=== PATIENT | male | born 1950 | race Hispanic/Latino ===

== ENCOUNTER 2024-04-28 21:07 | Inpatient (IN) | payer OTHER ==
[2024-04-29] MEDS ORDERED: Ondansetron PF 4 MG/2 ML Vial IVP PRN (01:06)
[2024-04-29] MEDS ORDERED: Acetaminophen 325 MG TAB PO PRN (01:06)
[2024-04-29] MEDS ORDERED: Glucagon 1 MG/ML KIT IM PRN (02:08)
[2024-04-29] MEDS ORDERED: Dextrose 5% in Water 1,000 ML IV PRN (02:08)
[2024-04-29] MEDS ORDERED: Insulin Lispro 100 UNIT/ML 10 ML VIAL SC PRN (02:08)
[2024-04-29 03:59] LABS: #Basophils 0.04 10x3/uL (0.0-0.2); %Basophils 0.5 % (0.0-1.0); %Lymphocytes 21.6 % (21.0-51.0); %Monocytes 11.2 % (0.0-10.0); %Neutrophils 64.3 % (42.0-75.0); Hematocrit 36.6 % (42.0-52.0); Hemoglobin 11.4 g/dL (14.0-18.0); Mean Corpuscular HGB CONC 31.1 g/dL (32.0-36.0); Mean Corpuscular Hemoglobin 25.6 pg (27.0-31.0); Mean Corpuscular Volume 82.2 fL (78.0-98.0); Mean Platelet Volume 11.8 fL (7.4-10.4); Platelet Count 154 10x3/uL (130-400); RBC Distribution Width 20.1 % (11.5-14.5); Red Blood Cell (RBC) Count 4.45 mill/uL (4.70-6.10)
[2024-04-29 04:18] LABS: Anion Gap 15 mmol/L (10-20); BUN (Urea Nitrogen) 18 mg/dL (8.4-25.7); Calc. Creatinine Clearance 57 mL/min (70-130); Calcium 9.1 mg/dL (7.8-10.44); Carbon Dioxide 24 mmol/L (23-31); Chloride 107 mmol/L (98-107); Estimated GFR 48; Glucose 46 mg/dL (83-110); Magnesium 1.7 mg/dL (1.6-2.6); Potassium 3.8 mmol/L (3.5-5.1); Sodium 142 mmol/L (136-145)
[2024-04-29] MEDS: Dextrose 50% Abboject 50 ML SYRINGE SLOW IVP PRN (04:26)
[2024-04-29] MEDS: Furosemide 20 MG (2 mL) VIAL SLOW IVP SCH ×2 (06:27→15:29)
[2024-04-29] MEDS: Insulin Regular, Human 100 UNIT/ML 10 ML VIAL SC SCH (08:50)
[2024-04-29] MEDS: Aspirin 81 mg Enteric Coated Tablet PO SCH (08:51)
[2024-04-29] MEDS: Enoxaparin 40 MG (0.4 mL) SYRINGE SC SCH (08:51)
[2024-04-29] MEDS: Carvedilol 3.125 MG TAB PO SCH (08:51)
[2024-04-29] MEDS: Insulin NPH Human Isophane 100 UNITS/ML (10 ML VIAL) SC SCH (09:41)
[2024-04-29] MEDS: Albumin 25% 25 GM (100 mL) BOT IVPB SCH (13:02)
[2024-04-29] MEDS: Ipratropium/Albuterol 3 ML NEB NEB SCH ×2 (13:39→13:42)
[2024-04-29] MEDS: Insulin Lispro 100 UNIT/ML 10 ML VIAL SC PRN (18:17)
[2024-04-29] MEDS: Atorvastatin Calcium 40 MG TAB PO SCH (20:26)
[2024-04-30 08:35] LABS: Anion Gap 19 mmol/L (10-20); BUN (Urea Nitrogen) 24 mg/dL (8.4-25.7); Calc. Creatinine Clearance 41 mL/min (70-130); Carbon Dioxide 28 mmol/L (23-31); Chloride 100 mmol/L (98-107); Estimated GFR 35; Glucose 87 mg/dL (83-110); Magnesium 1.7 mg/dL (1.6-2.6); Potassium 3.5 mmol/L (3.5-5.1); Sodium 143 mmol/L (136-145)
[2024-04-30 08:38] LABS: #Basophils 0.04 10x3/uL (0.0-0.2); %Basophils 0.6 % (0.0-1.0); %Eosinophils 2.9 % (0.0-10.0); %Lymphocytes 19.5 % (21.0-51.0); %Monocytes 13.1 % (0.0-10.0); Hematocrit 34.9 % (42.0-52.0); Hemoglobin 10.9 g/dL (14.0-18.0); Mean Corpuscular HGB CONC 31.6 g/dL (32.0-36.0); Mean Corpuscular Hemoglobin 25.8 pg (27.0-31.0); Mean Corpuscular Volume 81.7 fL (78.0-98.0); Mean Platelet Volume 11.5 fL (7.4-10.4); Platelet Count 141 10x3/uL (130-400); RBC Distribution Width 19.8 % (11.5-14.5); Red Blood Cell (RBC) Count 4.26 mill/uL (4.70-6.10)
[2024-04-30] MEDS ORDERED: Furosemide 40 MG TAB PO PRN (10:44)
[2024-05-01 05:17] LABS: #Basophils 0.03 10x3/uL (0.0-0.2); %Basophils 0.4 % (0.0-1.0); %Eosinophils 3.4 % (0.0-10.0); %Lymphocytes 22.8 % (21.0-51.0); %Monocytes 12.8 % (0.0-10.0); %Neutrophils 60.3 % (42.0-75.0); Hematocrit 38.1 % (42.0-52.0); Mean Corpuscular HGB CONC 31.5 g/dL (32.0-36.0); Mean Corpuscular Hemoglobin 25.5 pg (27.0-31.0); Mean Corpuscular Volume 81.1 fL (78.0-98.0); Mean Platelet Volume 12.1 fL (7.4-10.4); Platelet Count 155 10x3/uL (130-400); RBC Distribution Width 19.8 % (11.5-14.5)
[2024-05-01 05:44] LABS: Anion Gap 20 mmol/L (10-20); BUN (Urea Nitrogen) 26 mg/dL (8.4-25.7); Calc. Creatinine Clearance 47 mL/min (70-130); Calcium 9.5 mg/dL (7.8-10.44); Carbon Dioxide 25 mmol/L (23-31); Chloride 102 mmol/L (98-107); Estimated GFR 40; Glucose 103 mg/dL (83-110); Magnesium 1.9 mg/dL (1.6-2.6); Potassium 3.6 mmol/L (3.5-5.1); Sodium 143 mmol/L (136-145)
[2024-05-01] MEDS: Ferrous Sulfate 325 MG TAB PO SCH (08:37)
[2024-05-01] MEDS: Empagliflozin 10 MG TAB PO SCH (08:37)
[2024-05-01] MEDS: Carvedilol 3.125 MG TAB PO SCH (17:17)
[2024-05-02 05:46] LABS: Anion Gap 14 mmol/L (10-20); BUN (Urea Nitrogen) 29 mg/dL (8.4-25.7); Calc. Creatinine Clearance 47 mL/min (70-130); Calcium 9.7 mg/dL (7.8-10.44); Carbon Dioxide 27 mmol/L (23-31); Chloride 104 mmol/L (98-107); Estimated GFR 40; Glucose 107 mg/dL (83-110); Potassium 3.6 mmol/L (3.5-5.1); Sodium 141 mmol/L (136-145)
[2024-05-02 08:06] VITALS: TEMP 98
[2024-05-02] MEDS: FLU (Fluad Triv) TS24-25 (65UP)/MF59C/PF 45 MCG/0.5 ML Syringe IM ONE (08:43)
[2024-05-02 09:22] VITALS: BP 98/59
[2024-05-27] MEDS ORDERED: Cyanocobalamin 1000 MCG/ML VIAL IM SCH (09:00)
== END 2024-05-02 12:34 | DRG 291 ==
LOC: PCU 22:49
PROVIDERS: ADMIT Internal Medicine; ATTEND Family Medicine
PROC: 30233J1 Transfusion of Nonautologous Serum Albumin into Peripheral Vein, Percutaneous Approach (ICD-10-PCS; principal; 2024-04-28)
DX: I13.0 Hypertensive heart and chronic kidney disease with heart failure and stage 1 through stage 4 chronic kidney disease, or unspecified chronic kidney disease (principal); I50.23 Acute on chronic systolic (congestive) heart failure; I24.89 Other forms of acute ischemic heart disease; N17.9 Acute kidney failure, unspecified; N18.30 Chronic kidney disease, stage 3 unspecified; E66.9 Obesity, unspecified; I25.5 Ischemic cardiomyopathy; E11.22 Type 2 diabetes mellitus with diabetic chronic kidney disease; D63.1 Anemia in chronic kidney disease; F03.90 Unspecified dementia, unspecified severity, without behavioral disturbance, psychotic disturbance, mood disturbance, and anxiety; Z65.2 Problems related to release from prison; Z79.899 Other long term (current) drug therapy; Z68.32 Body mass index [BMI] 32.0-32.9, adult
CPT/HCPCS: 36415; 36416; 71045; 71275; 80048; 80053; 83605; 83735; 83880; 84484; 85025; 85379; 87040; 87428; 93005; 94640; 96374; J1650; J1815; J1940; J7620; J7999; P9047

== ENCOUNTER 2024-05-02 15:26 | Inpatient (IN) | payer OTHER ==
[~2024-05-02 15:26] MED LIST: Iopamidol-370 76% 500 ML MDV (1 ML CHARGE) ONE
[2024-05-02] MEDS ORDERED: Magnesium 2 GM/50 ML BAG (IN WATER) ONE (15:30)
[2024-05-02] MEDS ORDERED: Sodium Bicarb 50 MEQ/50 ML Abboject 8.4% SYRINGE ONE (15:30)
[2024-05-02] MEDS ORDERED: Amiodarone 150 MG/3 ML VIAL ONE (15:30)
[2024-05-02] MEDS ORDERED: Amiodarone 450 MG, Admixture Fee 1 EACH in Dextrose 5% in Water 250 ML IVPB SCH (15:45)
[2024-05-02] MEDS ORDERED: fentaNYL 50 mcg/mL 1 mL Vial ONE (15:55)
[2024-05-02 17:02] LABS: #Basophils Less than 0.03 10x3/uL (0.0-0.2); %Basophils 0.2 % (0.0-1.0); %Eosinophils 1.4 % (0.0-10.0); %Lymphocytes 9.4 % (21.0-51.0); %Monocytes 6.3 % (0.0-10.0); %Neutrophils 82.1 % (42.0-75.0); Hemoglobin 12.3 g/dL (14.0-18.0); Mean Corpuscular HGB CONC 30.8 g/dL (32.0-36.0); Mean Corpuscular Hemoglobin 25.4 pg (27.0-31.0); Mean Corpuscular Volume 82.6 fL (78.0-98.0); Mean Platelet Volume 11.8 fL (7.4-10.4); Platelet Count 152 10x3/uL (130-400); RBC Distribution Width 19.2 % (11.5-14.5); Red Blood Cell (RBC) Count 4.84 mill/uL (4.70-6.10)
[2024-05-02 17:11] LABS: INR-International Normal Ratio 1.2; Prothrombin Time 15.4 sec (12.0-14.7)
[2024-05-02 17:12] LABS: PTT 36.8 sec (22.9-36.1)
[2024-05-02 17:27] LABS: ALT (SGPT) 21 U/L (8-55); AST (SGOT) 33 U/L (5-34); Albumin 4.3 g/dL (3.4-4.8); Alkaline Phosphatase 104 U/L (40-110); Anion Gap 17 mmol/L (10-20); BUN (Urea Nitrogen) 28 mg/dL (8.4-25.7); Bilirubin, Total 0.9 mg/dL (0.2-1.2); Calc. Creatinine Clearance 0 mL/min (70-130); Calcium 9.2 mg/dL (7.8-10.44); Carbon Dioxide 25 mmol/L (23-31); Chloride 103 mmol/L (98-107); Estimated GFR 37; Globulin 3.3 g/dL (2.4-3.5); Glucose 179 mg/dL (83-110); Potassium 4.2 mmol/L (3.5-5.1); Protein, Total 7.6 g/dL (5.8-8.1); Sodium 141 mmol/L (136-145)
[2024-05-02 17:35] LABS: Troponin I 0.243 ng/mL (< 0.028)
[2024-05-02] MEDS ORDERED: Aspirin Chewable 81 MG TAB ONE (18:29)
[2024-05-02] MEDS ORDERED: Insulin Lispro 100 UNIT/ML 10 ML VIAL SC PRN (19:55)
[2024-05-02] MEDS ORDERED: Dextrose 5% in Water 1,000 ML IV PRN (19:55)
[2024-05-02] MEDS ORDERED: Dextrose 50% Abboject 50 ML SYRINGE SLOW IVP PRN (19:55)
[2024-05-02] MEDS ORDERED: Glucagon 1 MG/ML KIT IM PRN (19:55)
[2024-05-02] MEDS ORDERED: Electrolyte Replacement Protocol FS PRN (20:15)
[2024-05-02] MEDS: Heparin 5,000 UNITS/ML VIAL SC SCH (20:47)
[2024-05-02] MEDS: Famotidine/PF 20 mg/2ml Vial SLOW IVP SCH (20:47)
[2024-05-02 20:59] LABS: Magnesium 2.8 mg/dL (1.6-2.6)
[2024-05-02] MEDS: Electrolyte Replacement Protocol 1 EACH FS ONE (23:08)
[2024-05-02 23:35] LABS: Amphetamine Not Detected (NotDetected); Barbiturates Screen Not Detected (NotDetected); Benzodiazepine Screen Not Detected (NotDetected); Cocaine Metabolite Screen Not Detected (NotDetected); Methadone Not Detected (NotDetected); Methamphetamine Not Detected (NotDetected); Opiate Screen Not Detected (NotDetected); Oxycodone Screen Not Detected (NotDetected); Phencyclidine (PCP) Not Detected (NotDetected); THC/Cannabinoid Screen Not Detected (NotDetected); Tricyclic Screen Not Detected (NotDetected)
[2024-05-02] MEDS: Amiodarone 450 MG in Dextrose 5% in Water 250 ML IVPB SCH (23:56)
[2024-05-02 23:59] LABS: Troponin I 1.283 ng/mL (< 0.028)
[2024-05-03 03:35] LABS: #Basophils 0.04 10x3/uL (0.0-0.2); %Basophils 0.5 % (0.0-1.0); %Eosinophils 2.8 % (0.0-10.0); %Lymphocytes 20.7 % (21.0-51.0); %Monocytes 11.6 % (0.0-10.0); %Neutrophils 64.2 % (42.0-75.0); Hematocrit 38.1 % (42.0-52.0); Hemoglobin 11.7 g/dL (14.0-18.0); Mean Corpuscular HGB CONC 30.7 g/dL (32.0-36.0); Mean Corpuscular Hemoglobin 25.2 pg (27.0-31.0); Mean Corpuscular Volume 82.1 fL (78.0-98.0); Mean Platelet Volume 11.2 fL (7.4-10.4); Platelet Count 147 10x3/uL (130-400); Red Blood Cell (RBC) Count 4.64 mill/uL (4.70-6.10)
[2024-05-03 03:53] LABS: Anion Gap 16 mmol/L (10-20); BUN (Urea Nitrogen) 27 mg/dL (8.4-25.7); CK (CPK) 334 U/L (30-200); Calc. Creatinine Clearance 48 mL/min (70-130); Calcium 9.2 mg/dL (7.8-10.44); Carbon Dioxide 23 mmol/L (23-31); Cardiac Risk 3.7 (Less than 4.5); Chloride 105 mmol/L (98-107); Cholesterol 107 mg/dl (< 200 Desired); Estimated GFR 41; Glucose 125 mg/dL (83-110); HDL Cholesterol 29 mg/dL (>60 Neg Risk); LDL Cholesterol, Calculated 59 mg/dL; Sodium 140 mmol/L (136-145); Triglycerides 95 mg/dL (Less than 150)
[2024-05-03] MEDS ORDERED: Enoxaparin 40 MG (0.4 mL) SYRINGE SC SCH (09:00)
[2024-05-03] MEDS ORDERED: Furosemide 40 MG (4 mL) VIAL SLOW IVP SCH ×2 (09:30→15:30)
[2024-05-03 09:59] LABS: Hematocrit 38.1 % (42.0-52.0); Hemoglobin 11.6 g/dL (14.0-18.0); Platelet Count 158 10x3/uL (130-400)
[2024-05-03 10:19] VITALS: BMI 33.4
[2024-05-03] MEDS: Heparin 10,000 UNITS/ 10 ML VIAL SLOW IVP SCH (10:36)
[2024-05-03] MEDS: Heparin 25,000 units/D5W 500 ML IVPB SCH (10:38)
[2024-05-03] MEDS: Nitroglycerin 0.4 MG TAB (25 Tab Bottle) SL PRN (12:54)
[2024-05-03] MEDS: Furosemide 20 MG TAB PO SCH (14:38)
[2024-05-03] MEDS: Isosorbide Mononitrate 30 MG ER.TAB PO SCH (14:40)
[2024-05-03] MEDS: Amiodarone 200 MG TAB PO SCH ×2 (14:41→20:41)
[2024-05-03] MEDS: Aspirin 81 mg Enteric Coated Tablet PO SCH (14:41)
[2024-05-03] MEDS: Carvedilol 3.125 MG TAB PO SCH (17:51)
[2024-05-03 18:04] LABS: PTT 214.3 sec (22.9-36.1)
[2024-05-03] MEDS: Atorvastatin Calcium 40 MG TAB PO SCH (20:41)
[2024-05-04 03:36] LABS: #Basophils Less than 0.03 10x3/uL (0.0-0.2); %Basophils 0.2 % (0.0-1.0); %Eosinophils 4.8 % (0.0-10.0); %Lymphocytes 18.8 % (21.0-51.0); %Monocytes 9.1 % (0.0-10.0); %Neutrophils 66.7 % (42.0-75.0); Hematocrit 36.8 % (42.0-52.0); Hemoglobin 11.6 g/dL (14.0-18.0); Mean Corpuscular HGB CONC 31.5 g/dL (32.0-36.0); Mean Corpuscular Hemoglobin 25.8 pg (27.0-31.0); Mean Platelet Volume 11.9 fL (7.4-10.4); Platelet Count 147 10x3/uL (130-400); RBC Distribution Width 18.9 % (11.5-14.5); Red Blood Cell (RBC) Count 4.49 mill/uL (4.70-6.10)
[2024-05-04 03:51] LABS: Anion Gap 15 mmol/L (10-20); BUN (Urea Nitrogen) 30 mg/dL (8.4-25.7); Calc. Creatinine Clearance 42 mL/min (70-130); Calcium 9.2 mg/dL (7.8-10.44); Carbon Dioxide 24 mmol/L (23-31); Chloride 103 mmol/L (98-107); Estimated GFR 33; Glucose 134 mg/dL (83-110); Sodium 138 mmol/L (136-145)
[2024-05-04 05:26] VITALS: BMI 30.9
[2024-05-04] MEDS: Aspirin 81 mg Enteric Coated Tablet PO SCH (08:56)
[2024-05-04] MEDS: Furosemide 40 MG TAB PO SCH (08:56)
[2024-05-04] MEDS: Isosorbide Mononitrate 30 MG ER.TAB PO SCH (08:57)
[2024-05-04] MEDS ORDERED: Polyethylene Glycol 3350 17 GM Packet PO PRN (18:46)
[2024-05-04] MEDS: Polyethylene Glycol 3350 17 GM Packet PO SCH (21:54)
[2024-05-05 03:22] LABS: #Basophils 0.05 10x3/uL (0.0-0.2); %Basophils 0.7 % (0.0-1.0); %Eosinophils 5.3 % (0.0-10.0); %Lymphocytes 25.7 % (21.0-51.0); %Monocytes 12.6 % (0.0-10.0); %Neutrophils 55.3 % (42.0-75.0); Hematocrit 37.1 % (42.0-52.0); Hemoglobin 11.3 g/dL (14.0-18.0); Mean Corpuscular HGB CONC 30.5 g/dL (32.0-36.0); Mean Corpuscular Hemoglobin 25.3 pg (27.0-31.0); Mean Corpuscular Volume 83.2 fL (78.0-98.0); Mean Platelet Volume 11.4 fL (7.4-10.4); Platelet Count 146 10x3/uL (130-400); RBC Distribution Width 18.8 % (11.5-14.5); Red Blood Cell (RBC) Count 4.46 mill/uL (4.70-6.10)
[2024-05-05 04:36] LABS: Anion Gap 18 mmol/L (10-20); BUN (Urea Nitrogen) 34 mg/dL (8.4-25.7); Calc. Creatinine Clearance 37 mL/min (70-130); Calcium 9.2 mg/dL (7.8-10.44); Carbon Dioxide 23 mmol/L (23-31); Chloride 102 mmol/L (98-107); Estimated GFR 31; Glucose 166 mg/dL (83-110); Sodium 139 mmol/L (136-145)
[2024-05-05 08:50] LABS: Hematocrit 37.5 % (42.0-52.0); Hemoglobin 11.6 g/dL (14.0-18.0); Platelet Count 153 10x3/uL (130-400)
[2024-05-05] MEDS: Polyethylene Glycol 3350 17 GM Packet PO SCH (09:18)
[2024-05-05] MEDS: FLU (Fluad Triv) TS24-25 (65UP)/MF59C/PF 45 MCG/0.5 ML Syringe IM ONE (09:58)
[2024-05-05] MEDS: Insulin Lispro 100 UNIT/ML 10 ML VIAL SC PRN (11:32)
[2024-05-06] MEDS: Enoxaparin 40 MG (0.4 mL) SYRINGE SC SCH (08:37)
[2024-05-06 20:14] VITALS: BP 123/74; TEMP 97.7
== END 2024-05-06 22:26 | DRG 296 ==
LOC: ERS 15:26 → EEVIPCON 15:26 → CCU 17:59 → PCU 05-03 21:39
PROVIDERS: ADMIT Hospitalist; ATTEND Hospitalist
DX: I46.9 Cardiac arrest, cause unspecified (principal); I50.21 Acute systolic (congestive) heart failure; I13.0 Hypertensive heart and chronic kidney disease with heart failure and stage 1 through stage 4 chronic kidney disease, or unspecified chronic kidney disease; I25.10 Atherosclerotic heart disease of native coronary artery without angina pectoris; Z66 Do not resuscitate; I45.2 Bifascicular block; Z51.5 Encounter for palliative care; E78.5 Hyperlipidemia, unspecified; E11.22 Type 2 diabetes mellitus with diabetic chronic kidney disease; N18.32 Chronic kidney disease, stage 3b; I25.5 Ischemic cardiomyopathy; F03.C0 Unspecified dementia, severe, without behavioral disturbance, psychotic disturbance, mood disturbance, and anxiety
CPT/HCPCS: 36415; 36416; 36556; 70450; 71275; 72125; 80048; 80061; 80306; 82550; 83036; 83735; 83880; 84443; 84484; 85025; 85610; 85730; 86850; 86900; 86901; 93005; 93010; 96365; 96375; 96376; J0282; J1644; J1650; J1815; J3010; J3475; J3490; J7070; Q9967